=== PATIENT | male | born 1945 | race Caucasian/White ===

== ENCOUNTER 2017-06-07 11:56 | Emergency (ER) | payer MEDICARE ==
[~2017-06-07] VITALS: Ht 177.8 cm; Wt 85.0 kg
[~2017-06-07 11:56] MED LIST: ALPR0.5T3 PO; DIOV40TA PO; HYDRO.5%T TOP; KETO2AER3 TOP; NEUR100C PO; PERC10TA27 PO; RIVA15 PO; TEMA7.5C9 PO
[2017-06-07 12:00] VITALS: BP 194/105; PULSE 97; RESP 16; TEMP 97.7; O2SAT 96
[2017-06-07] MEDS ORDERED: GABA400C5 PO (13:01)
[2017-06-07] MEDS ORDERED: OXYC1TAB36 PO (13:01)
[2017-06-07] MEDS ORDERED: ALPR0.5T3 PO (13:01)
[2017-06-07] MEDS ORDERED: MOME0.1S17 TOPICAL (13:06)
[2017-06-07] MEDS ORDERED: METR0.7533 TOPICAL (13:06)
[2017-06-07] MEDS ORDERED: TEMA30CA PO (13:06)
[2017-06-07] MEDS ORDERED: VALS1TAB65 PO (13:06)
[2017-06-07] MEDS ORDERED: XARE15TA PO (13:06)
[2017-06-07] MEDS ORDERED: FENT12DI T-DERMAL (13:06)
[2017-06-07] MEDS ORDERED: SODIUM CHLORIDE 0.9% FLUSH 10 ML FLUSH IV FLUSH PRN (13:15)
--- NOTE | 2017-06-07 13:25 | PD ---
HPI Chief Complaint: Complaint Time Seen by Provider: 12:39 Travel History International Travel<30 days: No Contact w/Intl Traveler<30days: No Traveled to known affect area: No History of Present Illness HPI The patient is a 72-year-old male who presents emergency department for left scrotal pain and left testicular pain of one week's duration. The patient notes increasing swallow the left aspect of the scrotum over the last week, has discomfort in the left scrotum which is worse in certain positions and alleviated in other positions. He denies any trauma to the affected area. The patient denies any dysuria, frequency, or urgency. He denies associated nausea, vomiting, diarrhea, change in bowel habits, or abdominal pain. He denies any known history of herniated to the affected area. He does note the swelling appears to be intermittent and worse in certain positions. He has not followed up with his primary physician this week, Dr. Dr. Rodríguez. PFSH Past Medical History Hx Anticoagulant Therapy: Yes (XARELTO) Blood Disorders: No Heart Rhythm Problems: No Cancer: No Cardiovascular Problems: Yes High Cholesterol: No Cerebrovascular Accident: Yes (CVA) Diabetes: No Diminished Hearing: No Endocrine: No Gastrointestinal Disorders: No Genitourinary: No Headaches: No Hypertension: Yes Implanted Vascular Access Dvce: No Musculoskeletal: No Neurologic: Yes Psychiatric: No Reproductive: No Respiratory: No Migraines: No Myocardial Infarction: No Seizures: Yes Tetanus Vaccination: > 5 Years Influenza Vaccination: No Past Surgical History Abdominal Surgery: No Cardiac Surgery: No Ear Surgery: No Endocrine Surgery: No Eye Surgery: No Genitourinary Surgery: No Gynecologic Surgery: No Neurologic Surgery: No Oral Surgery: No Tonsillectomy: Yes Social History Alcohol Use: No Tobacco Use: No Substance Use: No Allergies-Medications (Allergen,Severity, Reaction): Coded Allergies: morphine (Verified Allergy, Severe, 06/07/17) Reported Meds & Prescriptions Reported Meds & Active Scripts Active Reported Mometasone Topical (Mometasone Furoate) 0.1 % Lotn 1 Applic TOPICAL DAILY Rosadan Topical 0.75% (Metronidazole Topical 0.75%) 0.75% Gel 1 Applic TOPICAL BID Fentanyl Patch 72 HR (Fentanyl) 12 Mcg/Hr Patch 1 Patch T-DERMAL Q72H Remove old patch when new one placed. Valsartan 160 Mg Tab 160 Mg PO DAILY Temazepam 30 Mg Cap 30 Mg PO HS PRN Xarelto (Rivaroxaban) 15 Mg Tab 15 Mg PO DAILY Oxycodone-Acetaminophen 10-325 mg Tab 1 Tab PO Q6H PRN Gabapentin 400 Mg Cap 400 Cap PO TID Alprazolam 0.5 Mg Tab 0.5 Mg PO BID PRN Review of Systems Except as stated in HPI: all other systems reviewed are Neg General / Constitutional: No: Fever, Chills Cardiovascular: No: Chest Pain or Discomfort Respiratory: No: Shortness of Breath Gastrointestinal: No: Nausea, Vomiting, Diarrhea, Abdominal Pain, Constipation , Changes in Bowel Habits, Loss of Appetite Genitourinary: Positive: Other (as noted in history of present illness), No: Urgency, Frequency, Dysuria, Hematuria Physical Exam Narrative GENERAL: Awake, alert, pleasant 72-year-old male who appears his stated age and is in no acute respiratory distress. SKIN: Focused skin assessment warm/dry. HEAD: Atraumatic. Normocephalic. EYES: Pupils equal and round. No scleral icterus. No injection or drainage. ENT: No nasal bleeding or discharge. Mucous membranes pink and moist. NECK: Trachea midline. No JVD. CARDIOVASCULAR: Regular rate and rhythm. No murmur appreciated. RESPIRATORY: No accessory muscle use. Clear to auscultation. Breath sounds equal bilaterally. GASTROINTESTINAL: Abdomen soft, non-tender, nondistended. No rebound tenderness. Genitourinary: Circumcised phallus. Testicle on the right is descended and not palpable. Unable to palpate the left testicle, there does appear to be possible bowel versus swollen epididymis in the left scrotal sac. Difficulty standing the patient upright to perform proper hernia evaluation. MUSCULOSKELETAL: Contractures noted in the left hand with atrophy. NEUROLOGICAL: Awake and alert. No obvious cranial nerve deficits. Difficulties using the left aspect of the body. Normal speech. PSYCHIATRIC: Appropriate mood and affect; insight and judgment normal. Data Data Last Documented VS Vital Signs Date Time Temp Pulse Resp B/P (MAP) Pulse Ox O2 Delivery O2 Flow Rate FiO2 06/07/17 14:42 18 95 Room Air 06/07/17 14:24 72 06/07/17 12:00 97.7 Orders Orders Complete Blood Count With Diff (06/07/17 13:09) Comprehensive Metabolic Panel (06/07/17 13:09) Urinalysis - C+S If Indicated (06/07/17 13:09) Ct Abd/Pel W/O Iv Contrast (06/07/17 13:09) Iv Access Insert/Monitor (06/07/17 13:09) Ecg Monitoring (06/07/17 13:09) Oximetry (06/07/17 13:09) Sodium Chloride 0.9% Flush (Ns Flush) (06/07/17 13:15) Us Testicles W Doppler (06/07/17 ) Labs Laboratory Tests Test 06/07/17 13:15 06/07/17 14:30 White Blood Count 7.5 TH/MM3 Red Blood Count 5.07 MIL/MM3 Hemoglobin 15.0 GM/DL Hematocrit 46.0 % Mean Corpuscular Volume 90.7 FL Mean Corpuscular Hemoglobin 29.6 PG Mean Corpuscular Hemoglobin Concent 32.6 % Red Cell Distribution Width 13.1 % Platelet Count 233 TH/MM3 Mean Platelet Volume 9.8 FL Neutrophils (%) (Auto) 67.8 % Lymphocytes (%) (Auto) 17.8 % Monocytes (%) (Auto) 7.4 % Eosinophils (%) (Auto) 5.2 % Basophils (%) (Auto) 1.8 % Neutrophils # (Auto) 5.1 TH/MM3 Lymphocytes # (Auto) 1.3 TH/MM3 Monocytes # (Auto) 0.6 TH/MM3 Eosinophils # (Auto) 0.4 TH/MM3 Basophils # (Auto) 0.1 TH/MM3 CBC Comment DIFF FINAL Differential Comment Blood Urea Nitrogen 8 MG/DL Creatinine 0.98 MG/DL Random Glucose 96 MG/DL Total Protein 7.3 GM/DL Albumin 3.6 GM/DL Calcium Level 10.4 MG/DL Alkaline Phosphatase 73 U/L Aspartate Amino Transf (AST/SGOT) 30 U/L Alanine Aminotransferase (ALT/SGPT) 34 U/L Total Bilirubin 0.5 MG/DL Sodium Level 142 MEQ/L Potassium Level 4.0 MEQ/L Chloride Level 106 MEQ/L Carbon Dioxide Level 28.6 MEQ/L Estimat Glomerular Filtration Rate 75 ML/MIN Urine Color YELLOW Urine Turbidity CLEAR Urine pH 5.0 Urine Specific [place] 1.016 Urine Protein NEG mg/dL Urine Glucose (UA) NEG mg/dL Urine Ketones NEG mg/dL Urine Occult Blood NEG Urine Nitrite NEG Urine Bilirubin NEG Urine Leukocyte Esterase NEG Urine Squamous Epithelial Cells 0-5 /hpf Microscopic Urinalysis Comment CULT NOT INDICATED MDM Medical Decision Making Medical Screen Exam Complete: Yes Emergency Medical Condition: Yes Medical Record Reviewed: Yes Interpretation(s) Laboratory Tests Test 06/07/17 13:15 06/07/17 14:30 White Blood Count 7.5 TH/MM3 Red Blood Count 5.07 MIL/MM3 Hemoglobin 15.0 GM/DL Hematocrit 46.0 % Mean Corpuscular Volume 90.7 FL Mean Corpuscular Hemoglobin 29.6 PG Mean Corpuscular Hemoglobin Concent 32.6 % Red Cell Distribution Width 13.1 % Platelet Count 233 TH/MM3 Mean Platelet Volume 9.8 FL Neutrophils (%) (Auto) 67.8 % Lymphocytes (%) (Auto) 17.8 % Monocytes (%) (Auto) 7.4 % Eosinophils (%) (Auto) 5.2 % Basophils (%) (Auto) 1.8 % Neutrophils # (Auto) 5.1 TH/MM3 Lymphocytes # (Auto) 1.3 TH/MM3 Monocytes # (Auto) 0.6 TH/MM3 Eosinophils # (Auto) 0.4 TH/MM3 Basophils # (Auto) 0.1 TH/MM3 CBC Comment DIFF FINAL Differential Comment Blood Urea Nitrogen 8 MG/DL Creatinine 0.98 MG/DL Random Glucose 96 MG/DL Total Protein 7.3 GM/DL Albumin 3.6 GM/DL Calcium Level 10.4 MG/DL Alkaline Phosphatase 73 U/L Aspartate Amino Transf (AST/SGOT) 30 U/L Alanine Aminotransferase (ALT/SGPT) 34 U/L Total Bilirubin 0.5 MG/DL Sodium Level 142 MEQ/L Potassium Level 4.0 MEQ/L Chloride Level 106 MEQ/L Carbon Dioxide Level 28.6 MEQ/L Estimat Glomerular Filtration Rate 75 ML/MIN Urine Color YELLOW Urine Turbidity CLEAR Urine pH 5.0 Urine Specific [place] 1.016 Urine Protein NEG mg/dL Urine Glucose (UA) NEG mg/dL Urine Ketones NEG mg/dL Urine Occult Blood NEG Urine Nitrite NEG Urine Bilirubin NEG Urine Leukocyte Esterase NEG Urine Squamous Epithelial Cells 0-5 /hpf Microscopic Urinalysis Comment CULT NOT INDICATED Last Impressions Abdomen/Pelvis CT 06/07/17 1309 Signed Impressions: Service Date/Time: Wednesday, June 07, 2017 13:52 - CONCLUSION: Moderate hydrocele left testicle 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 Manfred Shelton MD FACR Ultrasound of the testicle reveals large left-sided hydrocele. Small hydrocele on the right. No significant varicocele identified. Blood flow to the testicles is intact. 3 mm epididymal cyst on the left. Differential Diagnosis Differential diagnosis includes inguinal hernia, incarcerated hernia, strangulated hernia, epididymitis, UTI, orchitis. Narrative Course IV was established, labs are drawn and sent, and the patient was placed on cardiac telemetry monitoring and continuous pulse oximetry monitoring. Noncontrast CT of the abdomen and pelvis was performed to evaluate for left inguinal hernia. Diagnosis Primary Impression: Left hydrocele Patient Instructions: General Instructions Additional Instructions: Follow-up with your primary physician and/or urology. Elevate as needed. Please provide the patient a copy of his CT results and ultrasound results at discharge. Return if symptoms worsen or progress. Med/Other Pt SpecificInfo: No Change to Meds Disposition: 01 DISCHARGE HOME Condition: Stable Jon Goodman MD Jun 07, 2017 13:25
[2017-06-07 13:42] LABS: AUTOMATED NEUTROPHIL # 5.1 TH/MM3 (1.8-7.7); BASOPHIL # 0.1 TH/MM3 (0-0.2); BASOPHIL % 1.8 % (0.0-2.0); EOSINOPHIL # 0.4 TH/MM3 (0-0.4); EOSINOPHIL % 5.2 % (0.0-4.0); LYMPH % 17.8 % (9.0-44.0); LYMPHOCYTE # 1.3 TH/MM3 (1.0-4.8); MEAN CELL VOLUME 90.7 FL (80.0-100.0); MEAN CORPUSCULAR HEMOGLOBIN 29.6 PG (27.0-34.0); MEAN CORPUSCULAR HGB CONC 32.6 % (32.0-36.0); MEAN PLATELET VOLUME 9.8 FL (7.0-11.0); MONO % 7.4 % (0.0-8.0); MONOCYTE # 0.6 TH/MM3 (0-0.9); NEUT % 67.8 % (16.0-70.0); PLATELET COUNT 233 TH/MM3 (150-450); RED BLOOD COUNT 5.07 MIL/MM3 (4.50-5.90); RED CELL DISTRIBUTION WIDTH 13.1 % (11.6-17.2); WHITE BLOOD COUNT 7.5 TH/MM3 (4.0-11.0)
[2017-06-07 13:49] LABS: CHLORIDE 106 MEQ/L (98-107); SODIUM (NA) 142 MEQ/L (136-145)
[2017-06-07 13:51] LABS: CALCIUM 10.4 MG/DL (8.5-10.1)
[2017-06-07 13:52] LABS: ALBUMIN 3.6 GM/DL (3.4-5.0); BICARBONATE 28.6 MEQ/L (21.0-32.0); BLOOD UREA NITROGEN 8 MG/DL (7-18); GLUCOSE,RANDOM 96 MG/DL (74-106)
[2017-06-07 13:55] LABS: ALT (GPT) 34 U/L (12-78); AST (GOT) 30 U/L (15-37); CREATININE 0.98 MG/DL (0.60-1.30); GLOMERULAR FILTRATION RATE 75 ML/MIN (>89)
[2017-06-07 13:57] LABS: TOTAL BILIRUBIN ADULT 0.5 MG/DL (0.2-1.0); TOTAL PROTEIN 7.3 GM/DL (6.4-8.2)
[2017-06-07 13:58] LABS: ALKALINE PHOSPHATASE 73 U/L (45-117)
[2017-06-07 14:24] VITALS: BP 164/102; PULSE 72; RESP 16; O2SAT 95
--- NOTE | 2017-06-07 14:27 | RADRPT ---
EXAM DATE/TIME: 06/07/2017 13:52 [facility] COMPARISON: No previous studies available for comparison. INDICATIONS : Left inguinal pain. Left testicular pain and swelling. ORAL CONTRAST: No oral contrast ingested. RADIATION DOSE: 14.86 CTDIvol (mGy) MEDICAL HISTORY : Seizures. Stroke Cardiovascular diseaseHypertension. SURGICAL HISTORY : None. ENCOUNTER: Initial ACUITY: 1 week PAIN SCALE: 7/10 LOCATION: Left inguinal TECHNIQUE: Volumetric scanning of the abdomen and pelvis was performed. Using automated exposure control and ad justment of the mA and/or kV according to patient size, radiation dose was kept as low as reasonably achievable to obtain optimal diagnostic quality images. DICOM format image data is available electro nically for review and comparison. FINDINGS: The lung base is clear The liver and spleen are unremarkable Calcified gallstones are evident in a benign appearing gallbladder Pancreas and adrenals appear normal There are no renal stones There is no retroperitoneal adenopathy There is minimal aneurysmal dilatation descending aorta to 3.3 cm There are no inflammatory changes evident There is minimal dilatation of the right iliac to 2.4 cm. Diverticula are present in the sigmoid colon without diverticulitis Bladder is unremarkable. 2 tiny calcifications are seen the base of the bladder of uncertain signifi cance Prostate is prominent Inguinal region appears normal. There is no adenopathy. There is no evidence for hernia Review of bone windows reveals degenerative changes in the lumbar spine L4-5 and L5-S1 Moderate hydrocele left testicle. 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 Manfred Shelton MD FACR on June 07, 2017 at 14:12 Board Certified Radiologist. This report was verified electronically.
[2017-06-07 14:42] VITALS: RESP 18; O2SAT 95
[2017-06-07 14:44] LABS: BILIRUBIN, URINE NEG (NEG); BLOOD, URINE NEG (NEG); GLUCOSE,URINE NEG (NEG); KETONE, URINE NEG (NEG); NITRITE,URINE NEG (NEG); URINE LEUKOCYTE ESTERASE NEG (NEG)
[2017-06-07 14:57] LABS: URINE COLOR YELLOW (YELLW/STRAW)
[2017-06-07 14:58] LABS: SQUAMOUS EPITHELIAL CELL URINE 0-5 /hpf (0-5)
--- NOTE | 2017-06-07 15:48 | RADRPT ---
EXAM DATE/TIME: 06/07/2017 14:50 [facility] COMPARISON: US LEG LEFT VENOUS DOPPLER, October 17, 2014, 12:38. INDICATIONS : Left testicular pain. MEDICAL HISTORY : Hypertension. CVA. Seizures. Cardiac disorders. Anticoagulant therapy, Xarelto. SURGICAL HISTORY : Tonsillectomy. Left shoulder surgery x2. ENCOUNTER: Initial ACUITY: 1 week PAIN SCORE: 8/10 LOCATION: Bilateral scrotum. MEASUREMENTS: RIGHT TESTICLE: 2.5 x 2.3 x 2.2cm LEFT TESTICLE: 2.2 x 2.9 x 2.9cm FINDINGS: RIGHT TESTICLE: There is homogeneous echotexture of the testicle. Blood flow is intact. There is a small hydrocele ev ident around the right testicle. The right epididymis is intact. LEFT TESTICLE: There is a sizable hydrocele surrounding the left testicle. The echotexture of the left testicle is w ithin normal limits for the blood flow is intact. Note is made of a 3 mm epididymal cyst on the left. SCROTUM: Within normal limits. CONCLUSION: 1. Large left-sided hydrocele. 2. Small hydrocele on the right. 3. No significant varicocele identified. 4. Blood flow to the testicles is intact. 5. 3 mm epididymal cyst on the left Omid Shelton MD on June 07, 2017 at 15:44 Board Certified Radiologist. This report was verified electronically.
[2017-06-07 16:15] VITALS: BP 161/100
== END 2017-06-07 16:16 | disposition home or self-care (01) ==
LOC: PHED 11:56
DX: N43.3 Hydrocele, unspecified (principal); I10 Essential (primary) hypertension; Z79.01 Long term (current) use of anticoagulants
CPT/HCPCS: 74176; 76870; 80053; 81001; 85025; 93975; 99285